=== PATIENT | male | born 1985 | race Caucasian/White ===

== ENCOUNTER 2016-05-31 22:15 | Emergency (ER) | payer OTHER ==
[~2016-05-31] VITALS: Ht 180.3 cm; Wt 72.7 kg
[~2016-05-31 22:15] MED LIST: AMOX500T2 PO; LORA2TAB PO; OLAN15TA3 PO; QUET200T PO
[2016-05-31 22:17] VITALS: BP 129/82; PULSE 52; RESP 16; O2SAT 97
--- NOTE | 2016-05-31 22:41 | ED.REPORT ---
HPI-General Illness Date of Service May 31, 2016 ED Provider: Dr. Teresa Lopez M.D. A homeless 30 year old male with a history of schizophrenia and polysubstance abuse presents to the ED via EMS requesting assistance with heroin and methamphetamine withdrawal. The patient had a positive urine drug test at his counselor's office today and was instructed to enroll in detox service. He was kicked out of the [facility] today because of his drug use. The patient last used methamphetamines and heroin three days ago. EMS found the patient with a blood pressure of 136/50 and a pulse of 110. The patient denies chest pain, nausea, vomiting, fever, cough, or other symptoms at this time. Nursing Notes Stated Complaint: DETOX Chief Complaint: Substance Abuse Nursing Notes Reviewed: Yes Allergies: Coded Allergies: Penicillins (Verified Allergy, Severe, Rash,Itching,, 05/31/16) Scheduled Amoxicillin (Amoxicillin) 500 Mg Tablet 500 MG PO TID Lorazepam (Lorazepam) 2 Mg Tablet 2 MG PO TID Olanzapine (Zyprexa) 15 Mg Tablet 15 MG PO DAILY Quetiapine Fumarate (Seroquel) 200 Mg Tablet 200 MG PO HS General Time Seen by MD: 22:41 Chief Complaint Other (Methamphetamine and Heroin Withdrawal) Hx Obtained From: Patient Arrived By: Ambulance Sudden in Onset?: Yes Onset Occurred: Just prior to arrival Symptom Duration: Since onset Severity: Current: No pain currently Severity: Maximum: No pain Associated with: Denies: Fever, Nausea, Vomiting Pertinent Negative: Relieved by nothing Context Related History: Reports Drug dependence, Reports Psychiatric history Recent Healthcare: No recent doctor visit Past Medical History Past Medical History Poor dentition Substance abuse Schizophrenia Past Surgical History None reported Smoking History Current Every Day Smoker Social History Alcohol Use: 1-3 per day Drug Use: In recovery, Meth, Other (Heroin) Other Social History: Local resident Ambulatory Status Independent Review of Systems + Heroin and methamphetamine withdrawal Full Review of Systems Constitutional: Denies: Fever Respiratory: Denies: Non-productive cough, Shortness of breath Cardiovascular: Denies: Chest pain GI: Denies: Nausea, Vomiting Complete sys rev & neg: except as marked. Physical Exam Vital Signs Vital Signs Date Time Temp Pulse Resp B/P Pulse Ox O2 Delivery O2 Flow Rate FiO2 05/31/16 22:17 36.2 52 16 129/82 97 Initial VS: Reviewed, Vital signs normal Neck: Supple, Full range of motion Respiratory: Breath sounds normal, Clear to auscultation, No respiratory distress Cardiovascular: Regular rate & rhythm, Heart sounds normal Skin: Warm, Dry, No cyanosis Neurologic: Alert, Oriented, Nonfocal Psychiatric: Mood/affect normal, Behavior normal, Normal thought content General/Constitutional: Awake, Alert, No acute distress Head / Eyes: Atraumatic, Normocephalic ENT: Airway patent Dry lips Interpretation & Diagnostics URINE DRUG SCREEN: + Amphetamines Otherwise Negative URINE DIPSTICK: 1.005 sp gravity 5 pH Normal Glucose Normal Urobilinogen Otherwise Negative Lab Results Interpretation Result Diagram: 05/31/16 2317 Test 05/31/16 22:32 05/31/16 23:17 Hold Urine Received (Received) White Blood Count 10.4th/mm3 (3.8-10.1) Red Blood Count 4.48mil/mm3 (4.40-5.80) Hemoglobin 13.1g/dL (13.8-17.2) Hematocrit 38.6% (41.0-50.0) Mean Corpuscular Volume 86.2fL (81-100) Mean Corpuscular Hemoglobin 29.2pg (27.0-35.0) Mean Corpuscular Hemoglobin Concent 33.9% (32.0-37.0) Red Cell Distribution Width 13.1% (12.3-15.4) Platelet Count 285bil/L (150-400) Neutrophils (%) (Auto) 51.9% (40-74) Lymphocytes (%) (Auto) 35.3% (14-46) Monocytes (%) (Auto) 9.5% (4-12) Eosinophils (%) (Auto) 2.5% (0-5) Basophils (%) (Auto) 0.4% (0-3) Hold Barragan Top Tube Received (Received) Re-Eval/Medical Decision Med Decision/Clinical Course This patient came indicated that kicked out of his housing situation after relapsing with math and opiates. He would like to go to detox. [facility]. We will send the labs and other information once we obtain them. The patient is signed out to Dr. Wiley. Source of Hx: Old records Time of Eval: 23:43 Patient Status: Condition improved Re-Evaluation/Progress Note: Patient rechecked. Care will be endorsed to Dr. Wiley at change of shift. Discharge & Departure Shift Change Sign-Out Patient Care Transferred: Yes Discussed Complaint(s): Yes Laboratory Evaluation: Ordered, not yet done Response to Therapy: Improved Primary Impression: Polysubstance abuse Discharge Condition All VS Reviewed: Yes Condition: Improved Referrals: NOPCP (PCP) Care Transferred to: Dr. Wiley Care Transferred at: 00:00 Scribe Attestation Portions of this note were transcribed by Gladys Joseph. I, , personally performed the history, physical exam, and medical decision-making; I reviewed and confirmed the accuracy of the information in the transcribed note. Signed by: Luba Petersen, 05/31/2016, 23:47 Teresa Lopez MD May 31, 2016 22:41 GLADYS JOSEPH May 31, 2016 22:52
[2016-05-31 23:33] LABS: BASOPHILS % (AUTO) 0.4 % (0-3); EOSINOPHILS % (AUTO) 2.5 % (0-5); MONOCYTES % (AUTO) 9.5 % (4-12); Mean Corpuscular Hemoglobin 29.2 pg (27.0-35.0); Mean Corpuscular Volume 86.2 fL (81-100); NEUTROPHILS % (AUTO) 51.9 % (40-74); Platelet Count 285 bil/L (150-400)
[2016-06-01 02:34] VITALS: BP 126/68; PULSE 99; RESP 16; O2SAT 98
[2016-06-01 06:51] VITALS: BP 105/70; PULSE 78; RESP 14; O2SAT 98
[2016-06-01 08:52] VITALS: BP 105/70; PULSE 78; RESP 14; O2SAT 98
== END 2016-06-01 08:53 | disposition home or self-care (01) ==
LOC: SED 22:15
DX: F15.20 Other stimulant dependence, uncomplicated (principal); F11.10 Opioid abuse, uncomplicated; F20.9 Schizophrenia, unspecified; F17.200 Nicotine dependence, unspecified, uncomplicated; Z59.0 Homelessness; Z88.0 Allergy status to penicillin

== ENCOUNTER 2016-06-24 14:25 | Emergency (ER) | payer OTHER ==
[~2016-06-24] VITALS: Ht 180.3 cm; Wt 79.5 kg
[2016-06-24 14:27] VITALS: BP 132/90; PULSE 104; RESP 20; O2SAT 100
--- NOTE | 2016-06-24 15:01 | ED.REPORT ---
HPI-Extremity Problem Upper Date of Service Jun 24, 2016 ED Provider: Yadira Almanza History of Present Illness: right hand swollen since Tuesday or Tuesday, unknown injury. tdap 2012. bucky is primary care. denies hx of same. right hand dominant. 12/28 patient requesting note to give to PO if he is provided opiates Nursing Notes Stated Complaint: SORE HAND Chief Complaint: Extremity Trauma Nursing Notes Reviewed: Yes Allergies: Coded Allergies: Penicillins (Verified Allergy, Severe, Rash,Itching,, 05/31/16) Scheduled Amoxicillin (Amoxicillin) 500 Mg Tablet 500 MG PO TID Lorazepam (Lorazepam) 2 Mg Tablet 2 MG PO TID Olanzapine (Zyprexa) 15 Mg Tablet 15 MG PO DAILY Quetiapine Fumarate (Seroquel) 200 Mg Tablet 200 MG PO HS General Time Seen by MD: 14:59 Chief Complaint Hand injury right Hx Obtained From: Patient Past Medical History Past Medical History Poor dentition Substance abuse Schizophrenia Denies: Asthma Past Surgical History orbit fracture Reports: Appendectomy Smoking History Current Every Day Smoker (1/2 pack a day ) Social History relasped 01/2016 denies current use 06/24/2016 Alcohol Use: 1-3 per day Drug Use: In recovery, Meth, Other Other Social History: Local resident Occupation single lives with roommates no work or school 06/24/2016 Ambulatory Status Independent Review of Systems Basic Review of Systems Eyes: Vision NL, No discharge Respiratory: No shortness of breath, No cough, No wheeze : No dysuria, No frequency Physical Exam Initial Vital Signs Vital Signs (First) Date Time Temp Pulse Resp B/P Pulse Ox O2 Delivery O2 Flow Rate FiO2 06/24/16 14:27 36.8 104 20 132/90 100 Room Air Initial VS: Reviewed, Vital signs normal General/Constitutional: Well-developed, Well-nourished Head / Eyes: Atraumatic, Normocephalic, PERRL ENT: Mucous membranes moist, Conjunctiva normal, No scleral icterus Neck: Supple, Non-tender, Full range of motion Respiratory: Breath sounds normal, Clear to auscultation, No respiratory distress Cardiovascular: Regular rate & rhythm, Heart sounds normal, Intact distal pulses Abdomen / GI: Soft, Non-tender, No guarding, No rebound, No distention Back: No CVA tenderness Lymphatic: No lymphadenopathy Lower Extremities: Vascular intact, Neuro intact, No swelling, No tenderness Skin: Warm, Dry, No cyanosis Neurologic: Alert, Oriented, Nonfocal Psychiatric: Mood/affect normal, Behavior normal, Normal thought content General/Constitutional: Awake, Alert, No acute distress Neck: Atraumatic, Supple, No meningismus, Full range of motion Respiratory / Chest: Atraumatic, Breath sounds NL, Breath sounds = bilat, No respiratory distress Cardiovascular: Heart rate NL, Regular rhythm, Heart sounds NL, No gallop Upper Extremity / MS: Atraumatic, Inspection NL, Full range of motion right hand has erthyma with increased warmth and mild swelling. Has full range of motion. Cap refill less than 3 sec. Sensation intact distally. No palpable floutance. ENT: Atraumatic, Airway patent, Mucous membranes moist, Pharynx NL Abdomen: Atraumatic, Soft, Non-tender Interpretation & Diagnostics X-Ray Interpretation Xray Interpretation: ROCEDURE: X-RAY RIGHT HAND, MINIMUM THREE VIEWS ([id number]) INDICATIONS: swelling pain TECHNIQUE: 3 views of the hand(s) acquired. COMPARISON: [facility], , FINGER(S) MIN 2VW, 05/17/2012, 14:31. FINDINGS: Bones: No fractures or dislocations. Carpal bones are normally aligned. No suspicious bony lesions. The bone mineralization is within normal limits. There are no significant degenerative changes of the right hand. Soft tissues: No suspicious soft tissue calcifications. No unexpected radiopaque foreign bodies are present. Mild soft tissue swelling along the dorsal aspect of the hand is present. IMPRESSION: Soft tissue swelling of the right hand without radiopaque foreign bodies evident or acute fractures. Dictated by: Frank Moreland M.D. on 06/24/2016 at 14:55 Approved by: Frank Moreland M.D. on 06/24/2016 at 14:56 Re-Eval/Medical Decision Med Decision/Clinical Course 30 year old male presents to the ER for evualation of redness and swelling of dorsum of right hand. No palpable floutance. Patient unable to give cause or mechanism of hand swelling. X-ray is negative for foreign body. No sign of compartment syndrome or abscess formation at this time. Discharge & Departure Impression: Primary Impression: Cellulitis Site of cellulitis of extremity: upper extremity Laterality: right Disposition: Home Patient Instructions: Cellulitis (ED) Additional Instructions: You have been given a dose of bactrim in the ER. Please continue with this medication in the am and pm for 7 days. You also received an injection of toradol. You can use the pill form of this for pain control. Take 10 mg up to 4 times a day as needed for pain. You also received an injection of rocephin. Continue with keflex 500 mg 4 times a day for 7 days. REturn if the redness goes outside of the line by more than 1 inch. Please follow with Dr. Coronado for a recheck next week. the x-ray does not show any sign of a foreign body. Referrals: Delores Coronado MD EDSupervising Provider for APC: Drew Feldman MD copies to: Delores Coronado MD, Sue ARNP Jun 24, 2016 15:01
[2016-06-24] MEDS ORDERED: cefTRIAXone Inj 1,000 MG, Lidocaine PF 1% Inj 2.1 ML in Syringe 0 EACH IM ONE (15:10)
[2016-06-24] MEDS ORDERED: Trimethoprim-Sulfa 160 mg-800 mg Tablet PO ONE (15:10)
--- NOTE | 2016-06-24 15:58 | DRSVH ---
PROCEDURE: X-RAY RIGHT HAND, MINIMUM THREE VIEWS ([id number]) INDICATIONS: swelling pain TECHNIQUE: 3 views of the hand(s) acquired. COMPARISON: [facility], CR, FINGER(S) MIN 2VW, 05/17/2012, 14:31. FINDINGS: Bones: No fractures or dislocations. Carpal bones are normally aligned. No suspicious bony lesions . The bone mineralization is within normal limits. There are no significant degenerative changes of the right hand. Soft tissues: No suspicious soft tissue calcifications. No unexpected radiopaque foreign bodies are present. Mild soft tissue swelling along the dorsal aspect of the hand is present. IMPRESSION: Soft tissue swelling of the right hand without radiopaque foreign bodies evident or acute fractures. Dictated by: Frank Moreland M.D. on 06/24/2016 at 14:55 Approved by: Frank Moreland M.D. on 06/24/2016 at 14:56
[2016-06-24 16:04] VITALS: BP 136/85; PULSE 102; RESP 16; O2SAT 98
== END 2016-06-24 16:05 | disposition home or self-care (01) ==
LOC: SED 14:25
DX: L03.113 Cellulitis of right upper limb (principal); F15.21 Other stimulant dependence, in remission; F17.200 Nicotine dependence, unspecified, uncomplicated; Z88.0 Allergy status to penicillin
CPT/HCPCS: 73130; 96372; 99284; J0696; J1885

== ENCOUNTER 2016-08-20 20:27 | Emergency (ER) | payer OTHER ==
[~2016-08-20] VITALS: Ht 180.3 cm; Wt 175.0 kg
[2016-08-20 20:29] VITALS: PULSE 85; RESP 26; O2SAT 97
--- NOTE | 2016-08-20 21:35 | ED.REPORT ---
HPI-Psychiatric Illness Date of Service Aug 20, 2016 ED Provider: Dr. Chato Patricia MD A homeless 30 year old male with a history of schizophrenia and polysubstance abuse presents to the ED voluntarily via [facility] complaining of generalized myalgias onset unknown. Patient is currently seeking detox for meth abuse. He has not been taking his regular home medications for the past two weeks but took 15 mg of olanzapine at 1500 this evening. He claims that his last meth/ heroin use was "weeks ago". Patient has been reportedly living in a sobriety care facility. Nursing Notes Stated Complaint: MENTAL HEALTH EVAL Chief Complaint: Psychiatric Complaint Nursing Notes Reviewed: Yes Allergies: Coded Allergies: Penicillins (Verified Allergy, Severe, Rash,Itching,, 08/20/16) Scheduled Amoxicillin (Amoxicillin) 500 Mg Tablet 500 MG PO TID Lorazepam (Lorazepam) 2 Mg Tablet 2 MG PO TID Olanzapine (Zyprexa) 15 Mg Tablet 15 MG PO DAILY Quetiapine Fumarate (Seroquel) 200 Mg Tablet 200 MG PO HS General Time Seen by MD: 21:34 Chief Complaint Other (Myalgias) Hx Obtained From: Patient Arrived By: Police Onset Occurred: Just prior to arrival Symptom Duration: Since onset Progression Since Onset: Unchanged Quality: Aching (Generalized) Severity: Current: Mild Severity: Maximum: Mild Associated with: Denies: Illicit drug use Pertinent Negative: Pt denies other symptoms Recent Healthcare: No recent doctor visit, No recent hospitalization Risk-Psychiatric Illness Suicide Risk Stratification Suicide Risk Factors - Adult: : Substance abuse RF Statements: Risk factors reviewed Past Medical History Past Medical History Substance abuse Schizophrenia Poor dentition Past Surgical History Orbit fracture Reports: Appendectomy Smoking History Current Every Day Smoker Social History relasped 01/2016 denies current use 06/24/2016 Alcohol Use: 1-3 per day Drug Use: In recovery, Meth, Other Other Social History: Local resident Occupation single lives with roommates no work or school 06/24/2016 Ambulatory Status Independent Review of Systems Seeking detox Psychiatric: Denies: Homicidal ideation, Suicidal ideation Complete sys rev & neg: except as marked. Musculoskeletal: Reports: Myalgia (generalized) Physical Exam Initial Vital Signs Vital Signs (First) Date Time Temp Pulse Resp B/P Pulse Ox O2 Delivery O2 Flow Rate FiO2 08/20/16 20:29 36.2 85 26 97 Room Air 08/20/16 23:09 135/91 Initial VS: Reviewed, Vital signs abnormal Head / Eyes: Atraumatic, Normocephalic, PERRL Neck: Supple, Non-tender, Full range of motion Extremities: Vascular intact, Neuro intact, No swelling, No tenderness Skin: Warm, Dry, No cyanosis General/Constitutional: Awake, Alert, No acute distress Neurologic: Oriented X3, No sensory deficits, CN II - XII intact NEURO: Ticking in all four extremities Psychiatric: Affect NL, Mood NL, Not suicidal, Not homicidal, No hallucinations Respiratory / Chest: Atraumatic, No respiratory distress Cardiovascular: Heart rate NL, Regular rhythm, Heart sounds NL Abdomen: Atraumatic, Soft, Non-tender Interpretation & Diagnostics Lab Results Interpretation Test 08/20/16 21:25 Hold Urine Received (Received) Lab Results Interpretation: Urine tox screen positive for methamphetamine. Breathalyzer 0. Drug Screen / Level Interp Urine pos amphetamines (Methamphetamine) Re-Eval/Medical Decision Med Decision/Clinical Course 30-year-old male with schizophrenia presents with psychotic features which seem more likely in the present situation to be due to methamphetamine. Arrangements were made for him to go [facility]. Re-Evaluation/Progress : Time of Eval: 00:11 Patient Status: Condition improved Re-Evaluation/Progress Note: Pt is informed [facility]. All of the patient's questions are addressed. He understands and agrees with the intended treatment plan. Counseled Regarding: Diagnosis, Lab results, Need for follow-up, When/why to return to ED Discharge & Departure Impression: Primary Impression: Methamphetamine abuse Additional Impression: Schizophrenia Schizophrenia type: unspecified Qualified Code: F20.9 - Schizophrenia, unspecified )( Condition at Discharge: No danger to self, No danger to others, No suicidal ideation, No homicidal ideation, Clear for psych facility, Clear for drug rehab Disposition: Home Discharge Condition All VS Reviewed: Yes Condition: Stable Patient Instructions: Methamphetamine Abuse (ED) Additional Instructions: Go directly to [facility]. Continue your present medicine (olanzapine). Referrals: Delores Coronado MD (PCP) Scribe Attestation Portions of this note were transcribed by Ysabel Alaniz. I, Dr. Patricia personally performed the history, physical exam and medical decision-making; I reviewed and confirmed the accuracy of the information in the transcribed note. Signed by: Luba Velazquez, 08/21/16 0012. copies to: Delores Coronado MD, Howard L MD Aug 20, 2016 21:35 YSABEL ALANIZ Aug 20, 2016 21:43
[2016-08-20] MEDS ORDERED: OLANZapine Zydis ODT 5 mg Tablet PO ONE (21:50)
[2016-08-20 23:09] VITALS: BP 135/91; PULSE 82; RESP 22; O2SAT 97
[2016-08-21 00:47] VITALS: BP 135/91; PULSE 82; RESP 22; O2SAT 97
== END 2016-08-21 00:54 | disposition other institution (70) ==
LOC: SED 20:27
DX: F15.10 Other stimulant abuse, uncomplicated (principal); F20.9 Schizophrenia, unspecified; F17.200 Nicotine dependence, unspecified, uncomplicated; Z88.0 Allergy status to penicillin; Z79.899 Other long term (current) drug therapy

== ENCOUNTER 2016-09-03 20:44 | Emergency (ER) | payer OTHER ==
[~2016-09-03] VITALS: Ht 170.2 cm; Wt 70.5 kg
[2016-09-03 20:58] VITALS: BP 146/75; PULSE 99; RESP 21; O2SAT 97
--- NOTE | 2016-09-03 21:02 | ED.REPORT ---
HPI-General Illness Date of Service Sep 03, 2016 ED Provider: Prem Moon MD Nursing Notes Stated Complaint: CRISIS CENTER Chief Complaint: Substance Abuse Allergies: Coded Allergies: Penicillins (Verified Allergy, Severe, Rash,Itching,, 09/03/16) Scheduled Amoxicillin (Amoxicillin) 500 Mg Tablet 500 MG PO TID Lorazepam (Lorazepam) 2 Mg Tablet 2 MG PO TID Olanzapine (Zyprexa) 15 Mg Tablet 15 MG PO DAILY Quetiapine Fumarate (Seroquel) 200 Mg Tablet 200 MG PO HS General Time Seen by MD: 21:00 Past Medical History Past Medical History Substance abuse Schizophrenia Poor dentition Past Surgical History Orbit fracture Reports: Appendectomy Smoking History Current Every Day Smoker Social History relasped 01/2016 denies current use 06/24/2016 Alcohol Use: 1-3 per day Drug Use: In recovery, Meth, Other Other Social History: Local resident Occupation single lives with roommates no work or school 06/24/2016 Ambulatory Status Independent Physical Exam Vital Signs Vital Signs Date Time Temp Pulse Resp B/P Pulse Ox O2 Delivery O2 Flow Rate FiO2 09/03/16 20:58 36.3 99 21 146/75 97 Room Air Discharge & Departure Referrals: Delores Coronado MD (PCP) Prem Moon MD Sep 03, 2016 21:02
--- NOTE | 2016-09-03 22:28 | ED.REPORT ---
HPI-General Illness Date of Service Sep 03, 2016 ED Provider: Chato Patricia MD Pt is a 30 year old male with a hx of polysubstance abuse and Schizophrenia presenting to the ED requesting to [facility]. Denies any suicidal ideation or any other symptoms at this time. He denies using opiates in the last 24 hours but does report using amphetamines. The pt has been on Suboxone for 1 week in the past. Nursing Notes Stated Complaint: CRISIS CENTER Chief Complaint: Substance Abuse Nursing Notes Reviewed: Yes Allergies: Coded Allergies: Penicillins (Verified Allergy, Severe, Rash,Itching,, 09/03/16) Scheduled Amoxicillin (Amoxicillin) 500 Mg Tablet 500 MG PO TID Buprenorphine/Naloxone 8-2 mg (Buprenorphine/Naloxone 8-2 mg) 1 Each Tab.subl 1 TABLET SL DAILY Buprenorphine/Naloxone 8-2 mg (Buprenorphine/Naloxone 8-2 mg) 1 Each Tab.subl 1 TABLET SL DAILY Lorazepam (Lorazepam) 2 Mg Tablet 2 MG PO TID Olanzapine (Zyprexa) 15 Mg Tablet 15 MG PO DAILY Quetiapine Fumarate (Seroquel) 200 Mg Tablet 200 MG PO HS General Time Seen by MD: 21:58 Chief Complaint Other (Substance abuse) Hx Obtained From: Patient Arrived By: Walk-in Sudden in Onset?: No Onset Occurred: Just prior to arrival Context of Onset: Amphetamine use Symptom Duration: Since onset Severity: Current: No pain currently Severity: Maximum: No pain Recent Healthcare: No recent doctor visit, No recent hospitalization Similar Sx Previous: Yes Past Medical History Past Medical History Substance abuse Schizophrenia Poor dentition Past Surgical History Orbit fracture Reports: Appendectomy Smoking History Current Every Day Smoker Social History Alcohol Use: 1-3 per day Drug Use: In recovery, Meth, Other Other Social History: Local resident Occupation single lives with roommates no work or school 06/24/2016 Ambulatory Status Independent Review of Systems Full Review of Systems Constitutional: Denies: Weakness - generalized Respiratory: Denies: Wheezing GI: Denies: Vomiting Neurologic: Reports: Abnormal movement Psychiatric: Denies: Suicidal ideation Complete sys rev & neg: except as marked. Physical Exam Vital Signs Vital Signs Date Time Temp Pulse Resp B/P Pulse Ox O2 Delivery O2 Flow Rate FiO2 09/03/16 20:58 36.3 99 21 146/75 97 Room Air Initial VS: Reviewed, Vital signs normal Head / Eyes: Atraumatic, Normocephalic, PERRL ENT: Mucous membranes moist, Conjunctiva normal, No scleral icterus Respiratory: Breath sounds normal, Clear to auscultation, No respiratory distress Abdomen / GI: Soft, Non-tender, No guarding, No rebound, No distention Extremities: Vascular intact, Neuro intact, No swelling, No tenderness Neurologic: Alert, Oriented, Nonfocal Psychiatric: Mood/affect normal, Behavior normal, Normal thought content General/Constitutional: Awake, Alert Pressured speech, tweaking, hypervigilant, pacing, constant movement. Cardiovascular: Regular rhythm, Heart sounds NL Heart Rate / Rhythm: Positive: Tachycardia Skin: Warm, Dry, Intact Abscess Notes: No abscesses Interpretation & Diagnostics Interpretation & Diagnostics: URINE TOX POSITIVE FOR AMPHETAMINES Lab Results Interpretation Test 09/03/16 22:25 Hold Urine Received (Received) Re-Eval/Medical Decision Med Decision/Clinical Course 30-year-old male with a history of heroin and methamphetamine abuse. He is currently in treatment at [facility] with Suboxone. He missed an appointment and is run out. He states he has not used any opiates in the last couple of days. He is quite agitated from methamphetamine intoxication. He was given Zyprexa Zydis 10 mg and buprenorphine 8 mg with good relief of his symptoms. He initially requested to go [facility] but there is no bed available there. He will check with them on a daily basis and follow up at [facility] on Tuesday or Tuesday. Time of Eval: 23:43 Patient Status: Condition improved Re-Evaluation/Progress Note: Pt feeling better after receiving suboxone. Discussed plan for discharge. Pt understands and agrees with plan. Counseled Regarding: Diagnosis, Lab results, Need for follow-up, When/why to return to ED Discharge & Departure Primary Impression: Methamphetamine abuse Additional Impression: Opioid dependence with withdrawal Disposition: Home Discharge Condition All VS Reviewed: Yes Condition: Improved Patient Instructions: Buprenorphine/Naloxone (Into the mouth), Methamphetamine Abuse (ED) Additional Instructions: Do not use meth. Suboxone 8/2 tablets, one sublingual daily, #4 prescribed. Check with [facility] on a daily basis to see if they have beds available. Follow up on Tuesday with [facility]. Referrals: Delores Coronado MD (PCP) [facility] Scribe Attestation Portions of this note were transcribed by Vanessa Wang. I, Dr. Patricia personally performed the history, physical exam and medical decision-making; I reviewed and confirmed the accuracy of the information in the transcribed note. Signed by: Luba Casiano, 09/03/2016 and 2359. copies to: Delores Coronado MD, Chato Yarbrough MD Sep 03, 2016 22:28 VANESSA WANG Sep 03, 2016 22:32
[2016-09-03] MEDS ORDERED: OLANZapine Zydis ODT 5 mg Tablet PO SCH (22:29)
[2016-09-03] MEDS ORDERED: Buprenorphine 2 mg SL Tablet SL ONE (23:05)
[2016-09-03] MEDS ORDERED: BUPR1TAB36 SL ×2 (23:51→23:52)
== END 2016-09-04 00:16 | disposition home or self-care (01) ==
LOC: SED 20:44
DX: F15.10 Other stimulant abuse, uncomplicated (principal); F11.23 Opioid dependence with withdrawal; F20.9 Schizophrenia, unspecified; F17.200 Nicotine dependence, unspecified, uncomplicated; Z88.0 Allergy status to penicillin

== ENCOUNTER 2016-09-16 19:12 | Emergency (ER) | payer OTHER ==
[~2016-09-16] VITALS: Ht 180.3 cm; Wt 74.0 kg
[~2016-09-16 19:12] MED LIST changes: +BUPR1TAB36 SL
[2016-09-16 19:25] VITALS: BP 102/61; PULSE 119; RESP 20; O2SAT 98
--- NOTE | 2016-09-16 20:22 | ED.REPORT ---
HPI-General Illness Date of Service Sep 16, 2016 ED Provider: Dr. Chau 30 y/o male with a hx of polysubstance abuse and schizophrenia presents to the ED [facility] at [facility]. The pt reports Opioid withdrawal. At the triage, he reported heroin and alcohol use. In the ED room, he states he has only been using methamphetamine, with his last smoke last night and a beer this morning. Also history of schizophrenia, non compliant with meds. No SI or HI. Nursing Notes Stated Complaint: DETOX Chief Complaint: Substance Abuse Nursing Notes Reviewed: Yes Allergies: Coded Allergies: Penicillins (Verified Allergy, Severe, Rash,Itching,, 09/03/16) Scheduled Amoxicillin (Amoxicillin) 500 Mg Tablet 500 MG PO TID Buprenorphine/Naloxone 8-2 mg (Buprenorphine/Naloxone 8-2 mg) 1 Each Tab.subl 1 TABLET SL DAILY Buprenorphine/Naloxone 8-2 mg (Buprenorphine/Naloxone 8-2 mg) 1 Each Tab.subl 1 TABLET SL DAILY Lorazepam (Lorazepam) 2 Mg Tablet 2 MG PO TID Olanzapine (Zyprexa) 15 Mg Tablet 15 MG PO DAILY Olanzapine (Olanzapine) 15 Mg Tablet 15 MG PO DAILY Quetiapine Fumarate (Seroquel) 200 Mg Tablet 200 MG PO HS Quetiapine Fumarate (Seroquel) 200 Mg Tablet 200 MG PO HS General Time Seen by MD: 20:22 Chief Complaint Other (placement at [facility]) Hx Obtained From: Patient Arrived By: Walk-in Sudden in Onset?: No Onset Occurred: Yesterday Symptom Duration: Since onset Severity: Current: No pain currently Severity: Maximum: No pain Recent Healthcare: Recent doctor visit Similar Sx Previous: Yes Past Medical History Past Medical History Substance abuse Schizophrenia Poor dentition Past Surgical History Orbit fracture Reports: Appendectomy Smoking History Current Every Day Smoker Social History Alcohol Use: 1-3 per day Drug Use: In recovery, Meth, Other Other Social History: Local resident Occupation single lives with roommates no work or school 06/24/2016 Ambulatory Status Independent Review of Systems Reports: opioid withdrawal Complete sys rev & neg: except as marked. Physical Exam agitated, labile mood, disorganized Vital Signs Vital Signs Date Time Temp Pulse Resp B/P Pulse Ox O2 Delivery O2 Flow Rate FiO2 09/16/16 23:04 36.8 108 20 110/68 98 Room Air 09/16/16 19:25 36.8 119 20 102/61 98 Room Air Initial VS: Reviewed Head / Eyes: Atraumatic, Normocephalic Neck: Supple, Non-tender, Full range of motion Respiratory: Breath sounds normal, Clear to auscultation, No respiratory distress Cardiovascular: Regular rate & rhythm, Heart sounds normal, Intact distal pulses Abdomen / GI: Soft, Non-tender Extremities: Vascular intact, Neuro intact, No swelling, No tenderness Skin: Warm, Dry, No cyanosis Neurologic: Alert, Oriented, Nonfocal General/Constitutional: Awake, Alert, Cooperative Abnormal Mood/Affect: Positive: Labile, Pressured speech Appears to be intoxicated on meth Interpretation & Diagnostics Lab Results Interpretation Lab Results Interpretation: Alcohol level= 0 Re-Eval/Medical Decision Med Decision/Clinical Course 30-year-old male who is schizophrenic and noncompliant with his medications. They have been using methamphetamine and requesting detox. Does not appear to be acutely psychotic and is cooperative if inappropriate at times. He did urinate on the floor twice, seemed voluntary in effort to prevent us from doing a urine drug screen. No acute medical issues, has a mild tachycardia consistent with his methamphetamine use. Given lorazepam 2 mg by mouth and following this was sleeping. Provided him with a prescription for lorazepam 10 doses for crisis as well as prescriptions for his Zyprexa and Seroquel. Source of Hx: Old records Time of Eval: 20:58 Re-Evaluation/Progress Note: Talked to Soraya Resendiz, social welfare clerk, who will contact [facility]. Time of Eval: 21:03 Re-Evaluation/Progress Note: As per Soraya, [facility] will accept the pt at 3am. They reuire a urine test and breathalizer be done, starting Ativan taper and discharging the pt with a prescription for his psych medications. Counseled Regarding: Diagnosis, Need for follow-up, When/why to return to ED Discharge & Departure Primary Impression: Substance abuse Disposition: Home ([facility]) Additional Instructions: To crisis. Lorazepam 2mg PRN agitation. Seroquel 200mg daily at bedtime and zyprexa 15mg daily. Follow up with primary care in 1 week. Referrals: Delores Coronado MD (PCP) Scribe Attestation Portions of this note were transcribed by Tiffanie Grey. Dr.Slack Ángela, personally performed the history, physical exam and medical decision- making;I reviewed and confirmed the accuracy of the information in the transcribed note. Signed by Luba Temple. 09/17/16 00:25 copies to: Delores Coronado MD, Donald L MD Sep 16, 2016 20:22 Tiffanie Grey Sep 16, 2016 21:00
[2016-09-16] MEDS ORDERED: LORazepam 2 mg Tablet PO ONE (21:00)
[2016-09-16 23:04] VITALS: BP 110/68; PULSE 108; RESP 20; O2SAT 98
[2016-09-16] MEDS ORDERED: _LORazepam 2 MG Tablet PO PRN (23:55)
[2016-09-17] MEDS ORDERED: OLAN15TA17 PO
[2016-09-17] MEDS ORDERED: QUET200T PO
[2016-09-17 02:26] VITALS: BP 116/74; PULSE 94; RESP 18; O2SAT 98
== END 2016-09-17 02:28 | disposition home or self-care (01) ==
LOC: SED 19:12
DX: F11.20 Opioid dependence, uncomplicated (principal); F17.200 Nicotine dependence, unspecified, uncomplicated; Z88.0 Allergy status to penicillin; F20.9 Schizophrenia, unspecified

== ENCOUNTER 2016-09-27 13:27 | Emergency (ER) | payer OTHER ==
[~2016-09-27] VITALS: Ht 180.3 cm; Wt 76.4 kg
[~2016-09-27 13:27] MED LIST changes: +OLAN15TA17 PO
[2016-09-27 13:28] VITALS: BP 145/83; PULSE 110; RESP 20; O2SAT 100
[2016-09-27 13:57] LABS: BASOPHILS % (AUTO) 0.2 % (0-3); EOSINOPHILS % (AUTO) 0.1 % (0-5); MONOCYTES % (AUTO) 9.4 % (4-12); Mean Corpuscular Hemoglobin 29.4 pg (27.0-35.0); Mean Corpuscular Volume 85.4 fL (81-100); NEUTROPHILS % (AUTO) 77.7 % (40-74); Platelet Count 284 bil/L (150-400)
--- NOTE | 2016-09-27 15:11 | ED.REPORT ---
HPI-Psychiatric Illness Date of Service Sep 27, 2016 ED Provider: Faisal Paul MD Pt is a 30 y/o male w/ a hx of schizophrenia, substance abuse, presenting to the ED via PD for a mental health evaluation. The patient was found rolling around in the road by his roommates who called police. They were able to calm him down and his roommates say that they have never seen him like this and that he is possible not taking his psychiatric medications. This was the second time police were called to his residence [facility]. At time of interview, he states nothing is bothering him and he is simply tired. He denies SI, HI. He denies recent drug use. He has been taking his regular medications as directed. He states Seroquel is a new medication and he probably didn't take them. He does remember the events that caused him to be brought here but does not wish to discuss it. He has 3 visits last month for meth abuse. Nursing Notes Stated Complaint: MENTAL HEALTH Chief Complaint: Psychiatric Complaint Nursing Notes Reviewed: Yes ([employer], [employer] not reconciled) Allergies: Coded Allergies: Penicillins (Verified Allergy, Severe, Rash,Itching,, 09/27/16) Scheduled Amoxicillin (Amoxicillin) 500 Mg Tablet 500 MG PO TID Buprenorphine/Naloxone 8-2 mg (Buprenorphine/Naloxone 8-2 mg) 1 Each Tab.subl 1 TABLET SL DAILY Buprenorphine/Naloxone 8-2 mg (Buprenorphine/Naloxone 8-2 mg) 1 Each Tab.subl 1 TABLET SL DAILY Lorazepam (Lorazepam) 2 Mg Tablet 2 MG PO TID Olanzapine (Zyprexa) 15 Mg Tablet 15 MG PO DAILY Olanzapine (Olanzapine) 15 Mg Tablet 15 MG PO DAILY Quetiapine Fumarate (Seroquel) 200 Mg Tablet 200 MG PO HS Quetiapine Fumarate (Seroquel) 200 Mg Tablet 200 MG PO HS General Time Seen by MD: 15:09 Chief Complaint Bizarre behavior Hx Obtained From: Patient, Police Arrived By: Police Onset Occurred: Just prior to arrival Symptom Duration: 16 - 30 minutes Severity: Current: No pain currently Severity: Maximum: No pain Risk-Psychiatric Illness Suicide Risk Stratification RF Statements: Risk factors reviewed Past Medical History Past Medical History Notes: He has had 3 visits last month for methamphetamine abuse Past Medical History Substance abuse Schizophrenia Meth abuse Past Surgical History Orbit fracture Reports: Appendectomy Smoking History Current Every Day Smoker Social History Alcohol Use: 1-3 per day Drug Use: In recovery, Meth, Other Other Social History: Local resident Occupation single lives with roommates no work or school 06/24/2016 Ambulatory Status Independent Review of Systems Psychiatric: Reports: Change mental status, Unable to control self, Denies: Homicidal ideation, Suicidal ideation Complete sys rev & neg: except as marked. Physical Exam Initial Vital Signs Vital Signs (First) Date Time Temp Pulse Resp B/P Pulse Ox O2 Delivery O2 Flow Rate FiO2 09/27/16 13:28 37.0 110 20 145/83 100 Room Air Initial VS: Reviewed, Vital signs abnormal (HR110) General/Constitutional: Awake, Alert, No acute distress, Not toxic appearing Now sllightly drowsy Neurologic: Oriented X3, Speech NL, No motor deficits Psychiatric: Not suicidal, Not homicidal Calmer now than he was with police Not engaged Dismissive Limited insight Head / Eyes: Atraumatic, Normocephalic Pupils dilated ENT: Atraumatic, Airway patent, Mucous membranes moist Respiratory / Chest: Breath sounds NL, Breath sounds = bilat, No respiratory distress, No rales, No rhonchi, No wheezing, No retractions, No stridor Cardiovascular: Regular rhythm, Heart sounds NL, No gallop, No murmurs, No rubs Heart Rate / Rhythm: Positive: Tachycardia Abdomen: Atraumatic, Soft, Non-tender, No guarding, No rebound Skin: Atraumatic, Warm, Dry, Intact No track nichols Neck: Supple, Full range of motion Back: Full range of motion, Painless range of motion Upper Extremity / MS: Atraumatic, Full range of motion, No deformity No track nichols Lower Extremity / Pelvis / MS: Atraumatic, Full range of motion, No deformity Interpretation & Diagnostics Lab Results Interpretation Result Diagram: 09/27/16 1338 09/27/16 1338 Test 09/27/16 13:38 09/27/16 16:47 White Blood Count 13.7th/mm3 (3.8-10.1) Red Blood Count 4.66mil/mm3 (4.40-5.80) Hemoglobin 13.7g/dL (13.8-17.2) Hematocrit 39.8% (41.0-50.0) Mean Corpuscular Volume 85.4fL (81-100) Mean Corpuscular Hemoglobin 29.4pg (27.0-35.0) Mean Corpuscular Hemoglobin Concent 34.4% (32.0-37.0) Red Cell Distribution Width 13.2% (12.3-15.4) Platelet Count 284bil/L (150-400) Neutrophils (%) (Auto) 77.7% (40-74) Lymphocytes (%) (Auto) 12.2% (14-46) Monocytes (%) (Auto) 9.4% (4-12) Eosinophils (%) (Auto) 0.1% (0-5) Basophils (%) (Auto) 0.2% (0-3) Sodium Level 141mEq/L (134-144) Potassium Level 4.4mEq/L (3.5-5.2) Chloride Level 102mEq/L (97-108) Carbon Dioxide Level 24mmol/L (18-29) Blood Urea Nitrogen 36mg/dL (6-20) Creatinine 0.79mg/dL (0.76-1.27) Estimat Glomerular Filtration Rate 121mL/min (>59) Glucose Level 90mg/dL (60-99) Calcium Level 10.1mg/dL (8.5-10.1) Total Bilirubin 0.5mg/dL (0.0-1.2) Aspartate Amino Transf (AST/SGOT) 75U/L (0-50) Alanine Aminotransferase (ALT/SGPT) 102U/L (0-44) Alkaline Phosphatase 71U/L (25-150) Total Protein 7.9g/dL (6.4-8.4) Albumin 4.8g/dL (3.4-5.0) Thyroid Stimulating Hormone (TSH) 0.554uIU/mL (0.450-4.500) Hold Urine Received (Received) Lab Results Interpretation: Urine drug screen positive for: methamphetamine, amphetamine CBC nonspecific leukocytosis, no clinical findings of infection or evident CMP normal Alcohol 0 Re-Eval/Medical Decision Med Decision/Clinical Course This is a 30-year-old male with a history of schizophrenia who is brought by police after two law enforcement visits today. Please see their affadivit. Apparently the patient was acting bizarrely, rolling around outside. Apparently this was more abnormal than his usual behavior. Patient is a multitude a recent visits-all for methamphetamine abuse. There is a suspicion that the patient may not be compliant with his regular psychiatric medicines, which I am told is olanzapine and Seroquel. When I go interview the patient, he is not terribly forth coming or cooperative. He denies active suicidality or homicidality. But is not terribly interactive with me. He is mildly tachycardic with dilated pupils, and has do suspect recent methamphetamines. He is slightly restless. He will DU tox that he is positive for meth, and then received some lorazepam to try to settle him down. Patient is recently seen in the ED and accepted a [facility], but never showed up. The social workers and involved today, and apparently the patient lives at a sober house-and apparently is not welcome to return, they wish to go directly to [facility]. We are now waiting for him to metabolize that he can be safely transitioned to [facility]. The labs are otherwise normal. As he started to settle down a given a dose of his Zyprexa and Seroquel. Patient is not demonstrating any features indicate that he requires involuntary long-term-and she choose not to go to crisis [facility], he can be discharged from the emergency department, but has no immediate housing or usp and will be on his own. He has been accepted at [facility] with a tentative time at 9am. Patient is being turned over to Dr. Wiley at change of shift awaiting crisis placement. Source of Hx: Old records Re-Evaluation/Progress : Time of Eval: 22:58 Re-Evaluation/Progress Note: Pt rechecked. Cooperative but still restless. Differential Diagnosis: Positive: Noncompliance-medications, Schizophrenia, Substance abuse, Negative: Homicidal, Suicidal Counseled Regarding: Diagnosis, Lab results Discharge & Departure Impression: Primary Impression: Methamphetamine abuse Additional Impression: Schizophrenia Schizophrenia type: unspecified Qualified Code: F20.9 - Schizophrenia, unspecified Discharge Condition All VS Reviewed: Yes Condition: Stable Referrals: Delores Coronado MD (PCP) Care Transferred to: Dr. Wiley Care Transferred at: 00:00 Luba Attestation Portions of this note were transcribed by Corey Bearden. I, Dr. Paul, personally performed the history, physical exam and medical decision-making; I reviewed and confirmed the accuracy of the information in the transcribed note. Signed by Luba Jj, 09/27/16 - 1530 copies to: Delores Coronado MD, Matthew F MD Sep 27, 2016 15:11 COREY BEARDEN Sep 27, 2016 15:12
[2016-09-27] MEDS ORDERED: LORazepam 1 mg Tablet PO ONE (16:45)
[2016-09-27 17:14] VITALS: BP 140/94; PULSE 102; O2SAT 100
[2016-09-27 18:58] VITALS: BP 144/87; PULSE 97; RESP 18; O2SAT 100
[2016-09-27] MEDS ORDERED: OLANZapine Zydis ODT 5 mg Tablet PO ONE (23:35)
[2016-09-27 23:54] VITALS: BP 112/89; PULSE 103; RESP 18; O2SAT 100
[2016-09-28 06:08] VITALS: BP 130/81; PULSE 103; RESP 16; O2SAT 100
[2016-09-28] MEDS ORDERED: QUET200T PO (08:02)
[2016-09-28] MEDS ORDERED: OLAN15TA17 PO (08:02)
[2016-09-28 08:52] VITALS: BP 95/71; PULSE 117; RESP 18; O2SAT 99
== END 2016-09-28 08:50 | disposition home or self-care (01) ==
LOC: SED 13:27
DX: F15.20 Other stimulant dependence, uncomplicated (principal); F20.9 Schizophrenia, unspecified; F17.200 Nicotine dependence, unspecified, uncomplicated; Z88.0 Allergy status to penicillin

== ENCOUNTER 2016-12-05 20:17 | Emergency (ER) | payer OTHER ==
[~2016-12-05] VITALS: Ht 182.9 cm; Wt 68.2 kg
[2016-12-05 20:37] VITALS: BP 131/87; PULSE 116; RESP 16; O2SAT 100
--- NOTE | 2016-12-05 22:30 | ED.REPORT ---
HPI-General Illness Date of Service Dec 05, 2016 ED Provider: Prem Moon MD A 31 year old homeless male with a history of depression, substance abuse, schizophrenia and polysubstance abuse presents to the ED via EMS intoxicated with alcohol withdrawal seeking detox placement. The patient was reportedly found at [facility] and would like to be placed at [facility]. He admits to meth use 2 days ago. Patient has been attempting to become sober for the past 2 months. He denies any active hallucinations, any suicidal or homicidal ideation. Patient denies family history of substance abuse or suicidal /homicidal ideation. Nursing Notes Stated Complaint: ALCOHOL WITHDRAWL Chief Complaint: Substance Abuse Nursing Notes Reviewed: Yes Allergies: Coded Allergies: Penicillins (Verified Allergy, Severe, Rash,Itching,, 09/27/16) Scheduled Amoxicillin (Amoxicillin) 500 Mg Tablet 500 MG PO TID Buprenorphine/Naloxone 8-2 mg (Buprenorphine/Naloxone 8-2 mg) 1 Each Tab.subl 1 TABLET SL DAILY Buprenorphine/Naloxone 8-2 mg (Buprenorphine/Naloxone 8-2 mg) 1 Each Tab.subl 1 TABLET SL DAILY Lorazepam (Lorazepam) 2 Mg Tablet 2 MG PO TID Olanzapine (Zyprexa) 15 Mg Tablet 15 MG PO DAILY Olanzapine (Olanzapine) 15 Mg Tablet 15 MG PO DAILY Olanzapine (Olanzapine) 15 Mg Tablet 15 MG PO DAILY Quetiapine Fumarate (Seroquel) 200 Mg Tablet 200 MG PO HS Quetiapine Fumarate (Seroquel) 200 Mg Tablet 200 MG PO HS Quetiapine Fumarate (Seroquel) 200 Mg Tablet 200 MG PO HS General Time Seen by MD: 21:04 Chief Complaint Other (Alcohol Detox) Hx Obtained From: Patient Arrived By: Ambulance Sudden in Onset?: No Onset Occurred: 9 - 12 hours ago Context of Onset: EtOH use Symptom Duration: Since onset Pertinent Negative: Pt denies other symptoms Recent Healthcare: No recent hospitalization, Recent doctor visit Similar Sx Previous: Yes Past Medical History Past Medical History Notes: He has had 3 visits last month for methamphetamine abuse Past Medical History Substance abuse Schizophrenia Depression Polysubstance abuse Past Surgical History Orbit fracture Reports: Appendectomy Smoking History Current Every Day Smoker Social History Alcohol Use: 1-3 per day Drug Use: In recovery, IV drugs, Meth, Other Other Social History: Local resident Occupation single lives with roommates no work or school 06/24/2016 Ambulatory Status Independent Review of Systems + alcohol intoxication + seeking detox Full Review of Systems Psychiatric: Denies: Hallucinations, auditory, Hallucinations, visual, Homicidal ideation, Suicidal ideation Complete sys rev & neg: except as marked. Physical Exam Nursing note and vitals reviewed. Constitutional: Well-developed, well-nourished. Not diaphoretic. Disheveled appearance. Head: Normocephalic and atraumatic. Mouth/Throat: Oropharynx is clear and moist. No oropharyngeal exudate. Eyes: EOM are normal. Pupils are equal, round, and reactive to light. Neck: Supple, no tracheal deviation. Cardiovascular: Normal rate, regular rhythm. Equal and intact distal pulses throughout. Pulmonary/Chest: Effort normal and breath sounds normal. No respiratory distress. Abdominal: Soft. No distension. There is no tenderness, rebound, or guarding. Musculoskeletal: Range of motion grossly intact, moving all extremities. No edema or tenderness appreciated. Neurological: AOx3. Grossly nonfocal exam. Strength and sensation intact and equal to bilateral upper and lower extremities. Skin: Warm and dry, no rashes or pallor appreciated. Psychiatric: No active auditory or visual hallucinations. No suicidal ideation. No homicidal ideation. Appropriate mood and affect. Vital Signs Vital Signs Date Time Temp Pulse Resp B/P Pulse Ox O2 Delivery O2 Flow Rate FiO2 12/05/16 20:37 37 116 16 131/87 100 Room Air Interpretation & Diagnostics Lab Results Interpretation Test 12/05/16 23:00 Hold Urine Received (Received) Re-Eval/Medical Decision Med Decision/Clinical Course 31-year-old male with a history of substance abuse, alcoholism, and schizophrenia presenting to the ED for evaluation of his substance abuse and wanting to be sent to detox. Patient has been drinking today, however last used meth yesterday and does not appear to be high at this time. No hallucinations, SI, or HI. Not responding to internal stimuli. Does not appear to be acutely psychotic. Upon reassessment, patient is clinically sober , ambulating without difficulty. No crisis beds tonight but social work consulted and patient completed call with Crisis for initial intake and will attempt to get inpatient bed there tomorrow. Feels safe and comfortable w/ discharge. Given the above, reasonable to discharge home with very careful return precautions, outpatient detox follow-up, and PCP follow-up. Patient agreeable to the plan as stated, no further questions. Time of Eval: :59 Patient Status: Condition improved Re-Evaluation/Progress Note: Patient is informed of his reassuring examination and the plan to meet with [employer] for potential bed placement. The patient is voluntary without any SI or HI. All questions are addressed at this time. Counseled Regarding: Diagnosis, Need for follow-up, When/why to return to ED Discharge & Departure Primary Impression: Methamphetamine abuse Additional Impression: Alcohol intoxication Complication of substance-induced condition: uncomplicated Qualified Code: F10.120 - Alcohol abuse with intoxication, uncomplicated Disposition: Home Discharge Condition All VS Reviewed: Yes Condition: Improved Patient Instructions: Alcohol Intoxication (ED), Methamphetamine Abuse (ED) Additional Instructions: Thank you for trusting us with your care this afternoon. Your emergency department evaluation today is reassuring that there is no emergent cause for concern at this time, however, your blood alcohol level was elevated this evening . I highly recommend that you abstain from alcohol use and meth use in the future. There are no available beds at Crisis available at this time. Please follow up with the resources provided by the health care social worker. See referral to primary care physician and schedule a follow-up appointment in the next 2-3 days for a recheck. Please return to the emergency department for any new or worsening conditions including any seizures, persistent nausea, vomiting, fever, chills, shortness of breath, chest pain, thoughts of harming yourself or others or any other symptoms of concern to you. Referrals: Sukh Rivers MD [facility] Additional Phone Number Luba Attestation Portions of this note were transcribed by Ysabel Alaniz. I, Dr. Moon, personally performed the history, physical exam and medical decision-making; I reviewed and confirmed the accuracy of the information in the transcribed note. Signed by: Luba Velazquez, 12/05/16. Prem Moon MD Dec 05, 2016 22:30 YSABEL ALANIZ Dec 05, 2016 22:50
== END 2016-12-06 00:06 | disposition home or self-care (01) ==
LOC: EDBD 20:17 → SED 20:17
DX: F15.10 Other stimulant abuse, uncomplicated (principal); F10.120 Alcohol abuse with intoxication, uncomplicated; F20.9 Schizophrenia, unspecified; F32.9 Major depressive disorder, single episode, unspecified; F19.10 Other psychoactive substance abuse, uncomplicated; F17.200 Nicotine dependence, unspecified, uncomplicated; Z87.81 Personal history of (healed) traumatic fracture; Z90.89 Acquired absence of other organs; Z88.0 Allergy status to penicillin